=== PATIENT | female | born 1980 | race Caucasian/White ===

== ENCOUNTER → 2021-04-19 | Outpatient (CLI) | payer OTHER ==
--- NOTE | 2021-04-19 11:11 | REPMRS ---
Patient History The patient states she has not had a clinical breast exam in over a year. Digital Woman Screen Mammo: April 19, 2021 - Exam #: [id number] Bilateral CC and MLO view(s) were taken. Technologist: Marilyn Broderick, Technologist No prior studies available for comparison. FINDINGS: The breast tissue is extremely dense which could obscure a lesion on mammography. The Volpara volumetric breast density category is: D. There is a fairly symmentric extremely dense fibroglandular pattern in the breast parenchyma. There is no evidence of dominant mass, architectural distortion, or grouped microcalcification typical of malignancy. 3-D tomosynthesis shows no additional findings. Assessment: BI-RADS/ACR category 1 mammogram. Negative Mammogram. Recommendation Routine screening mammogram of both breasts in 1 year (for women over age 40). This patient's [facility] Lifetime Breast Cancer RIsk is estimated at 10.0 %. This mammogram was interpreted with the aid of an FDA-approved computer-aided dectection system. Electronically Signed By: Mike Mills MD 04/19/21 1111
== END ==
LOC: M WHC 10:21
PROVIDERS: ATTEND Obstetrics & Gynecology
DX: Z12.31 Encounter for screening mammogram for malignant neoplasm of breast (principal)

== ENCOUNTER → 2021-08-22 | Outpatient (REF) | payer OTHER ==
[2021-08-22 17:53] LABS: MAGNESIUM LEVEL 1.9 MG/DL (1.8-2.4)
[2021-08-22 17:58] LABS: TOTAL 25(OH) VITAMIN D 59.1 NG/ML (30.0-100.0)
== END ==
LOC: M SFHCRHEU 14:43
PROVIDERS: ATTEND Internal Medicine
DX: L65.9 Nonscarring hair loss, unspecified (principal); M79.7 Fibromyalgia; H04.129 Dry eye syndrome of unspecified lacrimal gland

== ENCOUNTER → 2021-09-10 | Outpatient (CLI) | payer OTHER | LOC: M RAD 17:14 | PROVIDERS: ATTEND Pain Medicine Interventional Pain Medicine | DX: M47.817 Spondylosis without myelopathy or radiculopathy, lumbosacral region (principal) ==

== ENCOUNTER 2021-10-28 06:23 | Day surgery (SDC) | payer OTHER ==
[2021-10-28] VITALS (7 sets, daily range): BP systolic 92–103; BP diastolic 54–64
[~2021-10-28] VITALS: Ht 152.4 cm; Wt 54.4 kg
[~2021-10-28 06:23] MED LIST: FISH306C PO; LEXA1TAB PO; LR 1,000 ML IV ONE; MAGN400C PO; TRAZ-252 PO; VITA-199 PO; VITA100T39 PO; ceFAZolin SOD 2 GM in IV 1 EA IV ONE
--- OUTSIDE RECORDS SUMMARY | 2021-10-28 06:29 | CCD ---
Author Author [email or web address] Organization [email or web address] Address Unknown Phone Unavailable Care Team Providers Care Hospital Admissions Clerk Name Role Phone Martínez, Arlet Unavailable PROBLEMS Type Condition ICD9-CM Code [id number] Code Onset Dates Condition S tatus W/U Status Risk SNOMED Code Notes Problem Chronic fatigue R53.82 Active confirmed 8422 9001 Problem Fibromyalgia M79.7 Active confirmed 7025925 05 Problem Dry eye H04.129 Active confirmed 830802752 ALLERGIES No Known Allergies ENCOUNTERS from 1980 to 2021-08-23 Encounter Location Date Provider Diagnosis [facility] [place] [phone] [place] [address] Jul, Arlet [place] IMMUNIZATIONS No Information SOCIAL HISTORY Tobacco Use: Social History Observation Description Date Details (start date - stop date) Never Smoker Sex Assigned At : Social History Observation Description Sex Assigned At Unknown Alcohol Screening: Question Answer Notes Did you have a drink containing alcohol in the past year? No Points 0 Interpretation Negative Tobacco Use: Question Answer Notes Are you a: never smoker REASON FOR REFERRAL No Information VITAL SIGNS No information MEDICATIONS Medication SIG (Take, Route, Frequency, Duration) Notes Start Da te End Date Status traZODone HCl 50 MG 1 tablet at bedtime as neede d Orally Once a day for 30 day(s) Active Vitamin B12 100 MCG as directed Orally Active Fish Oil 500 MG 1 capsule Orally Daily Active Lysine 500 MG as directed Orally Act connie Lexapro 20 MG 1 tablet Orally Once a day for 30 day(s) Active Refresh Dry Eye Therapy A ctive Vitamin D3 25 MCG (1000 UT) 1 capsule Orally Once a day for 30 day(s) Active Iron 325 (65 Fe) MG 1 tablet Orally Once a day for 30 day(s) Active Riboflavin 100 MG 1 tablet Orally Once a day for 30 day(s) Active Magnesium Oxide 400 MG 1 tablet as needed Orally Once a day for 30 da y(s) Active Tylenol 325 MG 2 tablet as needed Orally every 4 hrs as needed Active Ascorbic Acid 100 MG 1 tablet Orally Once a day for 30 day(s) Active PROCEDURES No Information RESULTS No Results REASON FOR VISIT Follow up appt need to be scheduled 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 Medical History Generalized Anxiety Disorder Medical History Back Pain Surgical History Alana Colon 2006 Hospitalization History ER visit for migraine 2016 Goals Section No Information Health Concerns No Information MEDICAL EQUIPMENT No Information MENTAL STATUS No Information FUNCTIONAL STATUS No Information ASSESSMENTS No Information PLAN OF TREATMENT Next Appt Details Provider Name:Yeimy Kandace Robbie, 2021-08-28 0 2:40:00 PM, [address] [place] [address] , [place], [address], Provider Name:Arlet Martínez, 2021-09-16 10:15:00 AM, [address] [place] [address], , [place], [address], Insurance Providers Payer Name Payer Address Payer Phone Insured Name Patient Relati onship to Insured Coverage Start Date Coverage End Date ACTIVE DUTY [address] [facility] [phone] CARLTON BACON self
--- OUTSIDE RECORDS SUMMARY | 2021-10-28 06:29 | CCD ---
Author Author [employer] Organization [employer] Address Unknown Phone Unavailable Care Team Providers Care Supervisor/Port Director Name Role Phone Martínez, Arlet Unavailable PROBLEMS Type Condition ICD9-CM Code CET12-LQ Code Onset Dates Condition S tatus W/U Status Risk SNOMED Code Notes Problem Chronic fatigue R53.82 Active confirmed 8422 9001 Problem Fibromyalgia M79.7 Active confirmed 5646432 05 Problem Dry eye H04.129 Active confirmed 632302142 ALLERGIES No Known Allergies ENCOUNTERS from 1980 to 2021-09-06 Encounter Location Date Provider Diagnosis [facility] Rheumatology [address] [place] [address] [place] [address] Aug, Arlet [place] IMMUNIZATIONS No Information SOCIAL HISTORY Tobacco Use: [...] Information RESULTS No Results REASON FOR VISIT Home Sleep Study 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 Medical History Generalized Anxiety Disorder Medical History Back Pain Surgical History Alana Colon 2005 Hospitalization History ER visit for migraine 2016 Goals Section No Information Health Concerns No Information MEDICAL EQUIPMENT No Information MENTAL STATUS No Information FUNCTIONAL STATUS No Information ASSESSMENTS No Information PLAN OF TREATMENT Next Appt Details Provider Name:Arlet Martínez, 2021-09-16 10:15:00 AM, [address] [place] [address], , [place], [address], Provider Name:Yeimy Kandace Robbie, 2021-09-17 0 9:30:00 AM, [address] [facility] [phone], [place], [address] Insurance Providers Payer Name Payer Address Payer Phone Insured Name Patient Relati onship to Insured Coverage Start Date Coverage End Date ACTIVE DUTY [address] [facility] [phone] CARLTON BACON self
--- OUTSIDE RECORDS SUMMARY | 2021-10-28 06:29 | CCD ---
Author Organization Unknown Address [address] [place] [address] Phone [phone] Care Team Providers Care Mechanic Driver Name Role Phone [facility] [phone] Allergies Code Code System Name Reaction Severity Status Onset NKDA Medications Name Status Start Date Stop Date B12 1 tab po daily Active Not available D3 DOTS 1 tab PO daily Active Not available Fish Oil 1 tab PO daily Active Not available iron 1 tab PO daily Active Not available Lexapro 20 mg tablet Take 1 tablet every day by oral route. Active Not available lysine 500 mg tablet Take 1 tablet every day by oral route. Active Not available magnesium 200 mg tablet Take 1 tablet every day by oral route. Active Not available riboflavin (vitamin B2) 1 tab Po daily Active Not available trazodone 50 mg tablet Take 1 tablet every day by oral route at bedtime. Active Not available Vitamin C 1 tab PO daily Active Not available Zanaflex 4 mg tablet Take 1 tablet 3 times a day by oral route as needed. Active Not available Problems None recorded. Procedures Date Name Performed by 08/20/2021 MRI, Lumbar Spine, W/o Contrast [facility] [address] [place] [address] (Work Place) Notes: Patient denies any surgeries. Results Lab Results None recorded. Past Encounters 09/11/2021 Lumbosacral Spondylosis without Myelopathy; Myofascial Pain Loreta Gomez SPECIAL TESTER: [address] [facility] [address], [place] [address], Ph. 08/20/2021 Lumbosacral Spondylosis without Myelopathy; Myofascial Pain Serafin Costello MD: [address] [facility] [address], [place] [address], Ph. Social History Tobacco Smoking Status Former Smoker Notes: quit at te een age Vaccine List None recorded. Plan of Care Reminders Provider Appointments None recorded. Lab None recorded. Referral None recorded. Procedures None recorded. Surgeries None recorded. Imaging None recorded. Vitals 09/11/2021 08:30AM FOLLOW-UP Height Blood Pressure 5 ft 114/76 mm[Hg] 08/20/2021 02:30PM NEW PATIENT Height Weight BMI Blood Pressure 5 ft 117.5 lbs 22.9 kg/m2 109/71 mm[Hg]
--- OUTSIDE RECORDS SUMMARY | 2021-10-28 06:29 | CCD ---
Author Author [facility] Organization [facility] Address Unknown Phone Unavailable Care Team Providers Care Armature Tester Name Role Phone Avalos, Yeimy Unavailable PROBLEMS Type Condition ICD9-CM Code [id number] Code Onset Dates Condition S tatus W/U Status Risk SNOMED Code Notes Problem Excessive vitamin B12 intake E67.8 Active confirme d 7273607221 Problem Abnormal uterine bleeding (AUB) N93.9 Active confirmed 53568558637446 Problem Chronic fatigue R53.82 Active confirmed 8422 9001 Problem Fibromyalgia M79.7 Active confirmed 4109839 05 Problem Dry eye H04.129 Active confirmed 553303195 ALLERGIES No Known Allergies ENCOUNTERS from 1980 to 2021-10-24 Encounter Location Date Provider Diagnosis [facility] [address] [place] [address] [place] [address] Sep, [facility] IMMUNIZATIONS No Information SOCIAL HISTORY Tobacco Use: [...] Notes Start Da te End Date Status Iron 325 (65 Fe) MG 1 tablet Orally Once a day for 30 day(s) Active Ibuprofen 800 MG 1 tablet with food or milk as needed Ora lly Three times a day Active Magnesium Oxide 400 MG 1 tablet as needed Orally Once a day for 30 da y(s) Active Tylenol 325 MG 2 tablet as needed Orally every 4 hrs as needed Active Riboflavin 100 MG 1 tablet Orally Once a day for 30 day(s) Active Percocet 5-325 MG 1 tablet as needed Orally every 6 hrs for 5 Sep, Active Fish Oil 500 MG 1 capsule Orally Daily Active Lysine 500 MG as directed Orally Act connie traZODone HCl 50 MG 1 tablet at bedtime as neede d Orally Once a day for 30 day(s) Active Vitamin B12 100 MCG as directed Orally Active Lexapro 20 MG 1 tablet Orally Once a day for 30 day(s) Active Vitamin D3 25 MCG (1000 UT) 1 capsule Orally Once a day for 30 day(s) Active Pyridium 200 MG 1 tablet after meals Orally Three times a day. 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 Day before surgery Ibuprofen 800 MG 1 tablet with food or milk as needed Ora lly Three times a day Next Appt Details Provider Name:Yeimy Avalos, 2021-10-28 0 7:30:00 AM, [address] [place] [address] , [place], [address], Provider Name:Yeimy Avalos 2021-11-06 0 1:20:00 PM, [address] [place] [address] , [place], [address], Provider Name:Yeimy Avalos, 2021-12-13 0 8:20:00 AM, [address] [place] [address]785-4155, [place], [address], Insurance Providers Payer Name Payer Address Payer Phone Insured Name Patient Relati onship to Insured Coverage Start Date Coverage End Date ACTIVE DUTY [address] [facility] [phone] CARLTON BACON self
--- OUTSIDE RECORDS SUMMARY | 2021-10-28 06:29 | CCD ---
Author Organization Unknown Address [address] [place] [address] Phone [phone] Care Team Providers Care Severity Of Illness Coordinator Name Role Phone [facility] [phone] Allergies Code Code System Name Reaction Severity Status Onset NKDA Medications Name Status Start Date Stop Date B12 1 tab every 3 days Active Not available D3 DOTS 1 tab PO daily Active Not available Fish Oil 1 tab PO daily Active Not available iron 1 tab PO every 3 days Active Not available Lexapro 20 mg tablet [...] by 08/20/2021 MRI, Lumbar Spine, W/o Contrast [facility] [address] [place] [address] (Work Place) Notes: Patient denies any surgeries. Results Lab Results None recorded. Past Encounters 09/25/2021 Lumbosacral Spondylosis without Myelopathy; Myofascial Pain; Lumbar Radiculopathy; Degeneration of Lumbar Intervertebral Disc; Degeneration of Lumbosacral Intervertebral Disc; Displacement of Lumbar Intervertebral Disc without Myelopathy; Intervertebral Disc Disorder; Spondylosis without Myelopathy Loreta Gomez SECURITY INFRASTRUCTURE ENGINEER: [address] [facility] [address], [address], [place] [address], Ph. 09/11/2021 Lumbosacral Spondylosis without Myelopathy; Myofascial Pain Loreta Gomez SECURITY INFRASTRUCTURE ENGINEER: [address], [place] [address], Ph. 08/20/2021 Lumbosacral Spondylosis without Myelopathy; Myofascial Pain Serafin Costello MD: [address] [facility] [address], [place] [address], Ph. Social History Tobacco Smoking Status Former Smoker Notes: quit at [facility] age Vaccine List None recorded. Plan of Care Reminders Provider Appointments None recorded. Lab None recorded. Referral None recorded. Procedures None recorded. Surgeries None recorded. Imaging None recorded. Vitals 09/25/2021 08:45AM FOLLOW-UP Height Blood Pressure 5 ft 110/76 mm[Hg] 09/11/2021 08:30AM FOLLOW-UP Height Blood Pressure 5 ft 114/76 mm[Hg] 08/20/2021 02:30PM NEW PATIENT Height Weight BMI Blood Pressure 5 ft 117.5 lbs 22.9 kg/m2 109/71 mm[Hg]
--- OUTSIDE RECORDS SUMMARY | 2021-10-28 06:29 | CCD ---
Author Author [employer] Organization [employer] Address Unknown Phone Unavailable Care Team Providers Care Residential Door Unit Installer Name Role Phone Martínez, Arlet Unavailable PROBLEMS Type Condition ICD9-CM Code HSI76-BT Code Onset Dates Condition S tatus W/U Status Risk SNOMED Code Notes Problem Chronic fatigue R53.82 Active confirmed 8422 9001 Problem Fibromyalgia M79.7 Active confirmed 5665358 05 Problem Dry eye H04.129 Active confirmed 923954775 ALLERGIES No Known Allergies ENCOUNTERS from 1980 to 2021-08-23 Encounter Location Date Provider Diagnosis [facility] Rheumatology 9 [facility] [phone] [place] [address] Jul, Arlet [place] IMMUNIZATIONS No Information SOCIAL HISTORY Tobacco Use: [...] Information RESULTS No Results REASON FOR VISIT Lab draw - CPK, iron, magnesium, phosphorus, vitamin D, vitamin B12, BEA titer & pattern, Anti-Sjogrens SSA SSB. 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 Medical History Generalized Anxiety Disorder Medical History Back Pain Surgical History Xiaojose de jesus Greybarbra 2006 Hospitalization History ER visit for migraine 2016 Goals Section No Information Health Concerns No Information MEDICAL EQUIPMENT No Information MENTAL STATUS No Information FUNCTIONAL STATUS No Information ASSESSMENTS No Information PLAN OF TREATMENT Next Appt Details Provider Name:Yeimy Kandace Robbie, 2021-08-28 0 2:40:00 PM, [address] [place] [address] , [place], [address], Provider Name:Arlet Martínez, 2021-09-16 10:15:00 AM, [address] [place] [address], , [place], [address], Insurance Providers Payer Name Payer Address Payer Phone Insured Name Patient Relati onship to Insured Coverage Start Date Coverage End Date ACTIVE DUTY [address] [facility] [phone] CARLTON BACON self
--- OUTSIDE RECORDS SUMMARY | 2021-10-28 06:29 | CCD ---
Author Organization Unknown Address [address] [place] [address] Phone [phone] Care Team Providers Care Halftone Operator Name Role Phone [facility] 3 [phone] Allergies Code Code System Name Reaction [...] by 08/20/2021 MRI, Lumbar Spine, W/o Contrast Informat ion not available Notes: Patient denies any surgeries. Results Lab Results None recorded. Past Encounters 08/20/2021 Lumbosacral Spondylosis without Myelopathy; Myofascial Pain Serafin Costello MD: [address] [facility] [address], [address], [place] [address], Ph. Social History Tobacco Smoking Status Former Smoker Notes: quit at een age Vaccine List None recorded. Plan of Care Reminders Provider Appointments None recorded. Lab None recorded. Referral None recorded. Procedures None recorded. Surgeries None recorded. Imaging None recorded. Vitals Height Weight BMI Blood Pressure 5 ft 117.5 lbs 22.9 kg/m2 109/71 mm[Hg]
--- OUTSIDE RECORDS SUMMARY | 2021-10-28 06:29 | CCD ---
Author Author [facility] Organization [facility] Address Unknown Phone Unavailable Care Team Providers Care Ring Packer Name Role Phone Yeimy Avalos Unavailable PROBLEMS Type Condition ICD9-CM Code VUQ70-NE Code Onset Dates Condition S tatus W/U Status Risk SNOMED Code Notes Problem Excessive vitamin B12 intake E67.8 Active confirme d 6278445431 Problem Abnormal uterine bleeding (AUB) N93.9 Active confirmed 62508644082297 Problem Chronic fatigue R53.82 Active confirmed 8422 9001 Problem Fibromyalgia M79.7 Active confirmed 0409056 05 Problem Dry eye H04.129 Active confirmed 537188543 ALLERGIES No Known Allergies ENCOUNTERS from 1980 to 2021-09-18 Encounter Location Date Provider Diagnosis [facility] Breast Care [address] [place] [address] [place] [address] Aug, Yeimy Robbie Abnormal uterine ble eding (AUB) N93.9 IMMUNIZATIONS No Information SOCIAL HISTORY Tobacco Use: [...] REASON FOR REFERRAL No Information VITAL SIGNS Weight 118 lbs Aug, Weight-kg 53.52 kg Aug, Height 60 in Aug, BMI 23.04 kg/m2 Aug, Blood pressure systolic 108 mm Hg Aug, Blood pressure diastolic 70 mm Hg Aug, MEDICATIONS Medication SIG (Take, Route, Frequency, Duration) Notes Start Da te End Date Status Magnesium Oxide 400 MG 1 tablet as needed Orally Once a day for 30 da y(s) Active Tylenol 325 MG 2 tablet as needed Orally every 4 hrs as needed Active Fish Oil 500 MG 1 capsule Orally Daily Active Iron 325 (65 Fe) MG 1 tablet Orally Once a day for 30 day(s) Active Riboflavin 100 MG 1 tablet Orally Once a day for 30 day(s) Active Lexapro 20 MG 1 tablet Orally Once a day for 30 day(s) Active Vitamin D3 25 MCG (1000 UT) 1 capsule Orally Once a day for 30 day(s) Active Ascorbic Acid 100 MG 1 tablet Orally Once a day for 30 day(s) Active Lysine 500 MG as directed Orally Act connie traZODone HCl 50 MG 1 tablet at bedtime as neede d Orally Once a day for 30 day(s) Active Refresh Dry Eye Therapy A ctive Vitamin B12 100 MCG as directed Orally Active PROCEDURES No Information RESULTS No Results REASON FOR VISIT DISC HYST 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 I discussed hysterectomy, uterine ablation and medical management. I specifically discussed supracervical versus complete hysterectomy. I reviewed the risk and benefit with all of the above. Patient will consider these options. She is sure she wants to proceed with hysterectomy but unsure whether or not she would like a supracervical hysterectomy. PLAN OF TREATMENT Treatment Notes Assessment Notes Clinical Notes Abnormal uterine bleeding (AUB) Discusse d management options for menorrhagia. I discussed hysterectomy, uterine ablation and medical management. I specifically discussed supracervical versus complete hysterectomy. I reviewed the risk and benefit with all of the above. Patient will consider these options. She is sure she wants to proceed with hysterectomy but unsure whether or not she would like a supracervical hysterectomy. Next Appt Details prn Reason: Insurance Providers Payer Name Payer Address Payer Phone Insured Name Patient Relati onship to Insured Coverage Start Date Coverage End Date [facility] ACTIVE DUTY [address] [facility] [id number] CARLTON BACON
--- OUTSIDE RECORDS SUMMARY | 2021-10-28 06:29 | CCD ---
Author Organization Unknown Address [address] [place] [address] Phone [phone] Care Team Providers Care Manager Gas Name Role Phone [facility] [phone] Allergies Code Code System Name Reaction [...] by 08/20/2021 MRI, Lumbar Spine, W/o Contrast [facility] [address] [place] [address] (Work Place) Notes: Patient denies any surgeries. Results Lab Results None recorded. Past Encounters 10/11/2021 Lumbosacral Spondylosis without Myelopathy; Myofascial Pain; Lumbar Radiculopathy; Degeneration of Lumbar Intervertebral Disc; Degeneration of Lumbosacral Intervertebral Disc; Displacement of Lumbar Intervertebral Disc without Myelopathy; Intervertebral Disc Disorder; Spondylosis without Myelopathy Loreta Gomez HEAD BAKER: [address], [place] [address], Ph. 09/25/2021 Lumbosacral Spondylosis without Myelopathy; Myofascial Pain; Lumbar Radiculopathy; Degeneration of Lumbar Intervertebral Disc; Degeneration of Lumbosacral Intervertebral Disc; Displacement of Lumbar Intervertebral Disc without Myelopathy; Intervertebral Disc Disorder; Spondylosis without Myelopathy Loreta Bardales Patricia, HEAD BAKER: [address] [address], [place] [address], Ph. 09/11/2021 Lumbosacral Spondylosis without Myelopathy; Myofascial Pain Loreta Gomez HEAD BAKER: [address] [address], [facility] [place] [address], Ph. 08/20/2021 Lumbosacral Spondylosis without Myelopathy; Myofascial Pain Serafin Costello MD: [address] [address], [place] [address], Ph. Social History Tobacco Smoking Status Former Smoker Notes: quit at [facility] age Vaccine List None recorded. Plan of Care Reminders Provider Appointments None recorded. Lab None recorded. Referral None recorded. Procedures None recorded. Surgeries None recorded. Imaging None recorded. Vitals 10/11/2021 11:00AM FOLLOW-UP Height Blood Pressure 5 ft 125/81 mm[Hg] 09/25/2021 08:45AM FOLLOW-UP Height Blood Pressure 5 ft 110/76 mm[Hg] 09/11/2021 08:30AM FOLLOW-UP Height Blood Pressure 5 ft 114/76 mm[Hg] 08/20/2021 02:30PM NEW PATIENT Height Weight BMI Blood Pressure 5 ft 117.5 lbs 22.9 kg/m2 109/71 mm[Hg]
--- OUTSIDE RECORDS SUMMARY | 2021-10-28 06:29 | CCD ---
Author Author [facility] Organization [facility] Address Unknown Phone Unavailable Care Team Providers Care Greaser Operator Name Role Phone Avalos, Yeimy Unavailable PROBLEMS Type Condition ICD9-CM Code [id number] Code Onset Dates Condition S tatus W/U Status Risk SNOMED Code Notes Problem Excessive vitamin B12 intake E67.8 Active confirme d 5650015624 Problem Abnormal uterine bleeding (AUB) N93.9 Active confirmed 65647943729495 Problem Chronic fatigue R53.82 Active confirmed 8422 9001 Problem Fibromyalgia M79.7 Active confirmed 4452494 05 Problem Dry eye H04.129 Active confirmed 661919345 ALLERGIES No Known Allergies ENCOUNTERS from 1980 to 2021-09-25 Encounter Location Date Provider Diagnosis [facility] [address] [place] [address] [place] [address] Sep, [facility] IMMUNIZATIONS No Information SOCIAL HISTORY Tobacco Use: [...] Information RESULTS No Results REASON FOR VISIT 10/28/21 SURG AUTH MEDICAL (GENERAL) HISTORY Type Description Date Medical [...] OF TREATMENT Next Appt Details Provider Name:Yeimy Leon, 2021-10-01 0 8:00:00 AM, [address] [place] [address], [place], [place], [address] [place] [address], Provider Name:Yeimy Leoruiz 2021-10-28 0 7:30:00 AM, [address] [place] [address], [place], [place], [address] [place] [address], Provider Name:Yeimy Leon, 2021-11-06 0 1:20:00 PM, [address] [place] [address], [place], [address], Provider Name:Yeimy Jeronimo Robbie, 2021-12-12 0 8:20:00 AM, [address] [place] [address], [place], [address], Insurance Providers Payer Name Payer Address Payer Phone Insured Name Patient Relati onship to Insured Coverage Start Date Coverage End Date ACTIVE DUTY [address] [facility] [phone] CARLTON BACON self
--- OUTSIDE RECORDS SUMMARY | 2021-10-28 06:29 | CCD ---
Author Author [facility] Organization [facility] Address Unknown Phone Unavailable Care Team Providers Care Full Stack Software Engineer Name Role Phone Mauricio, Arlet Unavailable PROBLEMS Type Condition ICD9-CM Code [id number] Code Onset Dates Condition S tatus W/U Status Risk SNOMED Code Notes Problem Chronic fatigue R53.82 Active confirmed 8422 9001 Problem Fibromyalgia M79.7 Active confirmed 1256624 05 Problem Dry eye H04.129 Active confirmed 586708020 ALLERGIES No Known Allergies ENCOUNTERS from 1980 to 2021-09-03 Encounter Location Date Provider Diagnosis [facility] Rheumatology [address] [place] [address] [place] [address] Jul, Arlet Martínez Fibromyalgia M79.7 ; Alopeci a L65.9 ; Chronic fatigue R53.82 and Dry eye H04.129 IMMUNIZATIONS No Information SOCIAL HISTORY Tobacco Use: [...] FOR REFERRAL No Information VITAL SIGNS Weight 117.2 lbs Jul, Weight-kg 53.16 kg Jul, Height 60 in Jul, BMI 22.89 kg/m2 Jul, Heart Rate 73 /min Jul, Respiratory Rate 18 /min Jul, Temperature 99.3 degrees Fahrenheit Jul, Oximetry 97 Jul, Blood pressure systolic 108 mm Hg Jul, Blood pressure diastolic 68 mm Hg Jul, MEDICATIONS Medication SIG (Take, Route, Frequency, Duration) [...] 30 day(s) Active PROCEDURES No Information RESULTS Component Value Reference Range CPK CREATINE PHOSPHOKINASE Reviewed date:08/23/2021 06:55:50 Interpretation: Performing Lab:[facility] [address] [place] [address] , ,[place] [address] CPK CREATINE PHOSPHOKINASE 106 26-192 IRON (FE) Reviewed date:08/23/2021 06:55:50 Interpretation: Performing Lab:[facility] [address] [facility] [address] , ,[place] [address] IRON (FE) 142 50-170 MAGNESIUM LEVEL Reviewed date:08/23/2021 06:55:50 Interpretation: Performing Lab:[facility] [address] [facility] [address] , ,[place] [address] MAGNESIUM LEVEL 1.9 1.8-2.4 PHOSPHOROUS LEVEL Reviewed date:08/23/2021 06:55:50 Interpretation: Performing Lab:[facility] [address] [place] [address] , ,[place] [address] PHOSPHORUS LEVEL 4.0 2.5-4.9 VITAMIN D 25-HYDROXY Reviewed date:08/23/2021 06:55:50 Interpretation: Performing Lab:[facility], [facility] [address] [facility] [address] , ,[place] [address] TOTAL 25(OH) VITAMIN D 59.1 30.0-100.0 VITAMIN B12 LEVEL Reviewed date:08/23/2021 06:55:50 Interpretation: Performing Lab:[facility], [facility] [address] [facility] [address] , ,[facility] VITAMIN B12 LEVEL 92 247-911 ANTI-SJOGRENS A&B ANTIBODIES Reviewed date:08/26/2021 19:31:58 Interpretation: Performing Lab:[facility], [facility] [address] [place] [address] , ,[place] [address] SSA SJOGRENS A <0.2 0.0-0.9 SSB SJOGRENS B <0.2 0.0-0.9 BEA TITER & PATTERN Reviewed date:08/26/2021 19:31:58 Interpretation: Performing Lab:[facility], [facility] [address] [place] [address] , ,[place] [address] BEA (HEP2) Negative . REASON FOR VISIT Zaira presents today to establish as a new patient. She feels like she has emerald n in all of her joints. Somes times she will feel a sensation of tightness and swelling in the hands and feet. Also states her hands and feet are hot to the t ouch. Feels like her top front teeth hurt at times but not all the time. Skin hurts. She did have full body laser hair removal because the hair follicles stone t. Feeling of clothing on her skin is uncomfortable. Cotton is her best option for clothing. Also complains of chronic fatigue with some days worse than othe rs. Has memory problems. MEDICAL (GENERAL) HISTORY Type Description Date Medical [...] Notes Treatment Notes Treatm ent Clinical Notes Jul, Fibromyalgia (ICD-10 - M79.7) Given the widespread pain and somatic symptoms, the clinical presentation is consisent with fibromyalgia. Given the overall worsening symptomatology, will investigate factors that can exacerbate the symptomatology. Will check vitamin D level, given the significant muscle aches. - Will check creatinine kinase to evaluate for elevated muscle enzymes, given the significant muscle pain. - Nutritional deficiencies can contribute to increased joint pain and muscle aches. Will check magnesium, and phosphorous Jul, Alopecia (ICD-10 - L65.9) Given the alopecia, will proceed with perform an BEA to screen for an underlying connective tissue disease. If the BEA is positive, then will proceed with further evaluation. Jul, Chronic fatigue (ICD-10 - R53.82) Given the chronic fatigue and sleep symptomatology, will proceed with a home sleep study to r/o an underlying sleep disorder. Jul, Dry eye (ICD-10 - H04.129) Given the dry eyes, will check SSA and SSB antibodies to further investigate for Sjogren's Syndrome. PLAN OF TREATMENT Treatment Notes Assessment Notes Clinical Notes Fibromyalgia Given the widespread pain and somatic symptoms, the clinical presentation is consisent with fibromyalgia. Given the overall worsening symptomatology, will investigate factors that can exacerbate the symptomatology. Will check vitamin D level, given the significant muscle aches.- Will check creatinine kinase to evaluate for elevated muscle enzymes, given the significant muscle pain.- Nutritional deficiencies can contribute to increased joint pain and muscle aches. Will check magnesium, and phosphorous Alopecia Given the alopecia, will proceed with perform an BEA to screen for an underlying connective tissue disease. If the BEA is positive, then will proceed with further evaluation. Chronic fatigue Given the chronic fa tigue and sleep symptomatology, will proceed with a home sleep study to r/o an underlying sleep disorder. Dry eye Given the dry eyes, will check SSA and SSB antibodies to further investigate for Sjogren's Syndrome. Treatment Notes Test Name Order Date Home Sleep Test NON-E 2021-08-20 Next Appt Details Provider Name:Arlet Raghu Martínez, 2021-09-16 10:15:00 AM, [address] [place] [address], [place], [address], Provider Name:Yeimy Avalos, 2021-09-17 0 9:30:00 AM, [address] [facility], , [place], [address], Insurance Providers Payer Name Payer Address Payer Phone Insured Name Patient Relati onship to Insured Coverage Start Date Coverage End Date ACTIVE DUTY [address] [facility] [phone] ZAIRA BACON
--- OUTSIDE RECORDS SUMMARY | 2021-10-28 06:29 | CCD ---
Author Author [facility] Organization [facility] Address Unknown Phone Unavailable Care Team Providers Care Welder Tack Name Role Phone Yeimy Avalos Unavailable PROBLEMS Type Condition ICD9-CM Code ZTM66-GN Code Onset Dates Condition S tatus W/U Status Risk SNOMED Code Notes Problem Excessive vitamin B12 intake E67.8 Active confirme d 8384537392 Problem Abnormal uterine bleeding (AUB) N93.9 Active confirmed 25122677873084 Problem Chronic fatigue R53.82 Active confirmed 8422 9001 Problem Fibromyalgia M79.7 Active confirmed 6195962 05 Problem Dry eye H04.129 Active confirmed 520354870 ALLERGIES No Known Allergies ENCOUNTERS from 1980 to 2021-10-04 Encounter Location Date Provider Diagnosis [facility] [address] [place] [address] [place] [address] Sep, Yeimy Robbie Abnormal uterine ble eding (AUB) [...] FOR REFERRAL No Information VITAL SIGNS Weight 116.2 lbs Sep, Height 60 in Sep, BMI 22.69 kg/m2 Sep, Blood pressure systolic 110 mm Hg Sep, Blood pressure diastolic 66 mm Hg Sep, MEDICATIONS Medication SIG (Take, Route, Frequency, Duration) [...] Information RESULTS No Results REASON FOR VISIT PRE OP SURG 10/28/21 MEDICAL (GENERAL) HISTORY Type Description Date Medical [...] Notes Treatment Notes Treatm ent Clinical Notes Sep, Abnormal uterine bleeding (AUB) (ICD-10 - N93.9) Pre-Operative CounselingProcedure: Robotic assisted hysterectomy with bilateral salpingectomy and cystoscopySurgeon: Jesse Larsonistant: Pablo Paz NP Patient has been counseling regarding the risks of the procedure to include anesthesia risks to include , bleeding/need for blood transfusion, infection, damage to internal organs, postoperative pain and need for future surgery based on findings. She understands these risks and wishes to proceed with the above procedures. PLAN OF TREATMENT Medication Medication Name Sig Start Date Stop Date Percocet 5-325 MG 1 tablet as needed Orally every 6 hrs for 5 Sep, Pyridium 200 MG 1 tablet after meals Orally Three times a day. Day before surgery Ibuprofen 800 MG 1 tablet with food or milk as needed Ora lly Three times a day Treatment Notes Assessment Notes Clinical Notes Abnormal uterine bleeding (AUB) Pre-Oper ative CounselingProcedure: Robotic assisted hysterectomy with bilateral salpingectomy and cystoscopySurgeon: Yeimy Avalos MDAssistant: Pablo Paz OIL AND GAS SPECIALIST Patient has been counseling regarding the risks of the procedure to include anesthesia risks to include , bleeding/need for blood transfusion, infection, damage to internal organs, postoperative pain and need for future surgery based on findings. She understands these risks and wishes to proceed with the above procedures. Next Appt Details Provider Name:Yeimy Avalos, 2021-10-28 0 7:30:00 AM, [address] [place] [address], , [place], [address], Provider Name:Yeimy Avalos, 2021-11-06 0 1:20:00 PM, [address] [place] [address], , [place], [address], Provider Name:Yeimy Avalos, 2021-12-13 0 8:20:00 AM, [address] [place] [address], , [place], [address], Insurance Providers Payer Name Payer Address Payer Phone Insured Name Patient Relati onship to Insured Coverage Start Date Coverage End Date ACTIVE DUTY [address] [facility] [phone] CARLTON BACON
--- OUTSIDE RECORDS SUMMARY | 2021-10-28 06:29 | CCD ---
Author Author [facility] Organization [facility] Address Unknown Phone Unavailable Care Team Providers Care Designer Architect Name Role Phone Mauricio, Arlet Unavailable PROBLEMS Type Condition ICD9-CM Code [id number] Code Onset Dates Condition S tatus W/U Status Risk SNOMED Code Notes Problem Fibromyalgia M79.7 Active confirmed 8710111 05 Problem Excessive vitamin B12 intake E67.8 Active confirme d 2619212450 Problem Dry eye H04.129 Active confirmed 942179371 Problem Chronic fatigue R53.82 Active confirmed 8422 9001 ALLERGIES No Known Allergies ENCOUNTERS from 1980 to 2021-09-17 Encounter Location Date Provider Diagnosis [facility] Rheumatology [address] [place] [address] [place] [address] Aug, [facility] IMMUNIZATIONS No Information SOCIAL HISTORY Tobacco Use: [...] Notes Start Da te End Date Status Tylenol 325 MG 2 tablet as needed Orally every 4 hrs as needed Active Riboflavin 100 MG 1 tablet Orally Once a day for 30 day(s) Active Vitamin D3 25 MCG (1000 UT) 1 capsule Orally Once a day for 30 day(s) Active Fish Oil 500 MG 1 capsule Orally Daily Active Magnesium Oxide 400 MG 1 tablet as needed Orally Once a day for 30 da y(s) Active Ascorbic Acid 100 MG 1 tablet Orally Once a day for 30 day(s) Active Vitamin B12 100 MCG as directed Orally Active Refresh Dry Eye Therapy A ctive Lysine 500 MG as directed Orally Act connie Iron 325 (65 Fe) MG 1 tablet Orally Once a day for 30 day(s) Active Lexapro 20 MG 1 tablet Orally Once a day for 30 day(s) Active traZODone HCl 50 MG 1 tablet at [...] OF TREATMENT Next Appt Details Provider Name:Yeimy Avalos, 2021-09-17 0 9:30:00 AM, [address] [facility], , [place], [address], Insurance Providers Payer Name Payer Address Payer Phone Insured Name Patient Relati onship to Insured Coverage Start Date Coverage End Date ACTIVE DUTY [address] [facility] [phone] CARLTON BACON self
--- OUTSIDE RECORDS SUMMARY | 2021-10-28 06:30 | CCD ---
Author Author [facility] Organization [facility] Address Unknown Phone Unavailable Care Team Providers Care Fireworks Assembly Supervisor Name Role Phone Parminder Costello MD Unavailable Unavailable Parminder Costello MD Unavailable Unavailable Parminder Costello MD Unavailable Unavailable Parminder Costello MD Unavailable Unavailable Parminder Costello MD Unavailable Unavailable Parminder Costello MD Unavailable Unavailable Parminder Cosetllo MD Unavailable Unavailable Parminder Costello MD Unavailable Unavailable Parminder Costello MD Unavailable Unavailable Parminder Costello MD Unavailable Unavailable Parminder Costello MD Unavailable Unavailable Parminder Costello MD Unavailable Unavailable Parminder Costello MD Unavailable Unavailable Parminder Costello MD Unavailable Unavailable Parminder Costello MD Unavailable Unavailable Parminder Costello MD Unavailable Unavailable Parminder Costello MD Unavailable Unavailable Parminder Costello MD Unavailable Unavailable Parminder Costello MD Unavailable Unavailable Parminder Costello MD Unavailable Unavailable Parminder Costello MD Unavailable Unavailable Parminder Costello MD Unavailable Unavailable Parminder Costello MD Unavailable Unavailable Parminder Costello MD Unavailable Unavailable Parminder Costello MD Unavailable Unavailable Parminder Costello MD Unavailable Unavailable Parminder Costello MD Unavailable Unavailable Parminder Costello MD Unavailable Unavailable Parminder Costello MD Unavailable Unavailable Parminder Costello MD Unavailable Unavailable Parminder Costello MD Unavailable Unavailable Parminder Costello MD Unavailable Unavailable Parminder Costello MD Unavailable Unavailable Parminder Costello MD Unavailable Unavailable BolParminder shaikh MD Unavailable Unavailable BolParminder shaikh MD Unavailable Unavailable BolParminder shaikh MD Unavailable Unavailable BolParminder shaikh MD Unavailable Unavailable BolParminder shaikh MD Unavailable Unavailable BolParminder shaikh MD Unavailable Unavailable BolParminder shaikh MD Unavailable Unavailable BolParminder shaikh MD Unavailable Unavailable BolParminder shaikh MD Unavailable Unavailable BolParminder shaikh MD Unavailable Unavailable BolParminder shaikh MD Unavailable Unavailable BolParminder shaikh MD Unavailable Unavailable BolParminder shaikh MD Unavailable Unavailable BolParminder shaikh MD Unavailable Unavailable BolParminder shaikh MD Unavailable Unavailable Jumalon, M Loreta INTERSTATE PLANNER Unavailable Unavailable Jumalon, M Loreta INTERSTATE PLANNER Unavailable Unavailable Jumalon, M Loreta INTERSTATE PLANNER Unavailable Unavailable Jumalon, M Loreta INTERSTATE PLANNER Unavailable Unavailable Jumalon, M Loreta INTERSTATE PLANNER Unavailable Unavailable Jumalon, M Loreta INTERSTATE PLANNER Unavailable Unavailable Jumalon, M Loreta INTERSTATE PLANNER Unavailable Unavailable Jumalon, M Loreta INTERSTATE PLANNER Unavailable Unavailable Jumalon, M Loreta INTERSTATE PLANNER Unavailable Unavailable Jumalon, M Loreta INTERSTATE PLANNER Unavailable Unavailable Jumalon, M Loreta INTERSTATE PLANNER Unavailable Unavailable Jumalon, M Loreta INTERSTATE PLANNER Unavailable Unavailable Jumalon, M Loreta INTERSTATE PLANNER Unavailable Unavailable Jumalon, M Loreta INTERSTATE PLANNER Unavailable Unavailable Jumalon, M Loreta INTERSTATE PLANNER Unavailable Unavailable Jumalon, M Loreta INTERSTATE PLANNER Unavailable Unavailable Jumalon, M Loreta INTERSTATE PLANNER Unavailable Unavailable Jumalon, M Loreta INTERSTATE PLANNER Unavailable Unavailable Jumalon, M Loreta INTERSTATE PLANNER Unavailable Unavailable Jumalon, M Loreta INTERSTATE PLANNER Unavailable Unavailable Jumalon, M Loreta INTERSTATE PLANNER Unavailable Unavailable Jumalon, M Loreta INTERSTATE PLANNER Unavailable Unavailable Jumalon, M Loreta INTERSTATE PLANNER Unavailable Unavailable Jumalon, M Loreta INTERSTATE PLANNER Unavailable Unavailable Jumalon, M Loreta INTERSTATE PLANNER Unavailable Unavailable Jumalon, M Loreta INTERSTATE PLANNER Unavailable Unavailable Jumalon, M Loreta INTERSTATE PLANNER Unavailable Unavailable Jumalon, M Loreta INTERSTATE PLANNER Unavailable Unavailable Jumalon, M Loreta INTERSTATE PLANNER Unavailable Unavailable Jumalon, M Loreta INTERSTATE PLANNER Unavailable Unavailable Re-disclosure Warning The records that you are about to access may contain information from federally-assisted alcohol or drug abuse programs. If such information is present, then the following federally mandated warning applies: This information has been disclosed to you from records protected by federal confidentiality rules (42 CFR part 2). The federal rules prohibit you from making any further disclosure of this information unless further disclosure is expressly permitted by the written consent of the person to whom it pertains or as otherwise permitted by 42 CFR part 2. A general authorization for the release of medical or other information is NOT sufficient for this purpose. The Federal rules restrict any use of the information to criminally investigate or prosecute any alcohol or drug abuse patient.The records that you are about to access may contain highly sensitive health information, the redisclosure of which is protected by Article 27-F of the [facility] Public Health law. If you continue you may have access to information: Regarding HIV / AIDS; Provided by facilities licensed or operated by the [facility] Office of Mental Health; or Provided by the [facility] Office for People With Developmental Disabilities. If such information is present, then the following [facility] mandated warning applies: This information has been disclosed to you from confidential records which are protected by state law. State law prohibits you from making any further disclosure of this information without the specific written consent of the person to whom it pertains, or as otherwise permitted by law. Any unauthorized further disclosure in violation of state law may result in a fine or long term sentence or both. A general authorization for the release of medical or other information is NOT sufficient authorization for further disc losure. Encounters Encounter Providers Location Date Indications Data Source(s ) Unknown [address] [facility], [facility] [address] 10/14/2021 12:00:00 AM EST eCW1 ([facility]) Loreta Jeffy Albertojosue, LEAD IOS DEVELOPER: [address], [place] [address], Ph. Attender: Loreta Gomez RADHA [place] - [facility] - Main Office 10/11/2021 12:00:00 AM EST ATHE NA ([facility]) Outpatient [address] [facility] [address] 10/01/2021 12:00:00 AM EST eCW1 ([facility]) Loreta Jeffy Gomez, LEAD IOS DEVELOPER: [address], [place] [address], Ph. Attender: Loreta Gomez [facility] - [facility] - [facility] 09/25/2021 12:00:00 AM EDT ATHE NA ([facility]) Unknown [address] [facility] [address] 09/25/2021 12:00:00 AM EDT eCW1 ([facility]) Loreta Jeffy Gomez, LEAD IOS DEVELOPER: [address], [place] [address], Ph. Attender: Loreta Gomez [facility] - [facility] - [facility] 09/25/2021 12:00:00 AM EDT ATHE NA ([facility]) Outpatient [address] [facility] [address] 09/17/2021 12:00:00 AM EDT eCW1 ([facility]) Outpatient [address] [facility] [address] 09/16/2021 12:00:00 AM EDT eCW1 ([facility]) Unknown [address] [facility] [address] 09/13/2021 12:00:00 AM EDT eCW1 ([facility]) Loreta Jeffy Gomez, LEAD IOS DEVELOPER: [address], [place] [address], Ph. Attender: Loreta Gomez [facility] - [facility] - [facility] 09/11/2021 12:00:00 AM EDT ATHE NA ([facility]) Loreta Gomez, LEAD IOS DEVELOPER: [address], [address], [place] [address], Ph. Attender: Loreta Gomez [facility] - [facility] 09/11/2021 12:00:00 AM EDT ATHE ULISES ([facility]) Loreta Gomez, LEAD IOS DEVELOPER: [address], [place] [address], Ph. Attender: Loreta Gomez [facility] - [facility] 09/11/2021 12:00:00 AM EDT ATHE NA ([facility]) Unknown [address] [facility] [address] 09/03/2021 12:00:00 AM EDT eCW1 ([facility]) Outpatient [address] [facility] [id number] 08/22/2021 12:00:00 AM EDT eCW1 ([facility]) Unknown [address] [facility] [address] 08/22/2021 12:00:00 AM EDT eCW1 ([facility]) Serafin Costello MD: [address], [place] [address], Ph. Attender: Serafin Costello MD [place] - [facility] 08/20/2021 12:00:00 AM EDT CHETAN ([facility]) Serafin Costello MD: [address], [place] [address], Ph. Attender: Serafin Costello MD [place] - [facility] 08/20/2021 12:00:00 AM EDT CHETAN ([facility]) Serafin Costello MD: [address], [place] [address], Ph. Attender: Serafin Costello MD [place] - [facility] - Main Office 08/20/2021 12:00:00 AM EDT CHETAN ([facility]) Outpatient [address] [facility] [address] 08/20/2021 12:00:00 AM EDT eCW1 ([facility]) Serafin Costello MD: [address] [address], [place] [address], Ph. Attender: Serafin Costello MD [place] - [facility] - Main Office 08/20/2021 12:00:00 AM EDT CHETAN ([facility]) Medications Medication Brand Name Start Date Product Form Dose Route Admi nistrative Instructions Pharmacy Instructions Status Indications Reaction Description Data Source(s) Acetaminophen 325 MG / Oxycodone Hydroch loride 5 MG Oral Tablet [Percocet] Percocet 5-325 MG Percocet 5-325 MG 10/01/2021 12:00:00 AM EST 1 .0 {tablet_as_needed} active Percocet 5-32 5 MG eCW1 ([facility]) Acetaminophen 325 MG / Oxycodone Hydroch loride 5 MG Oral Tablet [Percocet] Percocet 5-325 MG Percocet 5-325 MG 10/01/2021 12:00:00 AM EST 1 .0 {tablet_as_needed} active Percocet 5-32 5 MG eCW1 ([facility]) Insurance Providers Payer name Policy type / Coverage type Policy ID Covered republican ID Covered republican's relationship to lópez Policy López Plan Information [facility] ACTIVE DUTY [id number] SP [id number] DO NOT USE [id number] SP [id number] [facility] ACTIVE DUTY [id number] SP [id number] Problems, Conditions, and Diagnoses Code Display Name Description Problem Type Effective Dates Data Source(s) N93.9 Abnormal uterine bleeding Abnormal uterine bleeding (A UB) Problem 09/17/2021 12:00:00 AM EDT eCW1 ([facility]) E67.8 [id number] Excessive vitamin B12 intake Problem 09/16/2021 12:00:00 AM EDT eCW1 ([facility]) H04.129 [id number] Dry eye Problem 08/20/2021 12:00:00 AM ED T eCW1 ([facility]) M79.7 [id number] Fibromyalgia Problem 08/20/2021 12:00:00 AM EDT eCW1 ([facility]) R53.82 [id number] Chronic fatigue Problem 08/20/2021 12:00:00 AM EDT eCW1 ([facility]) Surgeries/Procedures Procedure Description Date Indications Data Source(s) MRI, lumbar spine, w/o contrast 08/20/2021 12:00:00 AM EDT CHETAN ([facility]) Results ID Date Data Source BEA TITER & PATTERN 08/22/2021 12:00:00 AM EDT eCW1 ([facility]) Name Value Range Interpretation Code Description Data Marisel rce(s) Supporting Document(s) Negative . BEA (HEP2) eCW1 ([facility]) ID Date Data Source ANTI-SJOGRENS A&B ANTIBODIES 08/22/2021 12:00:00 AM EDT eCW1 ([facility]) Name Value Range Interpretation Code Description Data Marisel rce(s) Supporting Document(s) <0.2 0.0-0.9 SSB SJOGRENS B eCW1 ([facility]) <0.2 0.0-0.9 SSA SJOGRENS A eCW1 ([facility]) ID Date Data Source VITAMIN B12 LEVEL 08/22/2021 12:00:00 AM EDT eCW1 ([facility]) Name Value Range Interpretation Code Description Data Marisel rce(s) Supporting Document(s) [id number] VITAMIN B12 LEVEL eCW1 ([facility]) ID Date Data Source VITAMIN D 25-HYDROXY 08/22/2021 12:00:00 AM EDT eCW1 ([facility]) Name Value Range Interpretation Code Description Data Marisel rce(s) Supporting Document(s) 59.1 30.0-100.0 TOTAL 25(OH) VITAMIN D eC W1 ([facility]) ID Date Data Source PHOSPHOROUS LEVEL 08/22/2021 12:00:00 AM EDT eCW1 ([facility]) Name Value Range Interpretation Code Description Data Marisel rce(s) Supporting Document(s) 4.0 2.5-4.9 PHOSPHORUS LEVEL eCW1 ([facility]) ID Date Data Source MAGNESIUM LEVEL 08/22/2021 12:00:00 AM EDT eCW1 ([facility] hospital) Name Value Range Interpretation Code Description Data Marisel rce(s) Supporting Document(s) 1.9 1.8-2.4 MAGNESIUM LEVEL eCW1 ([facility]) ID Date Data Source IRON (FE) 08/22/2021 12:00:00 AM EDT eCW1 ([facility]) Name Value Range Interpretation Code Description Data Marisel rce(s) Supporting Document(s) 142 [id number] IRON (FE) eCW1 ([facility]) ID Date Data Source CPK CREATINE PHOSPHOKINASE 08/22/2021 12:00:00 AM EDT eCW1 ( [facility]) Name Value Range Interpretation Code Description Data Marisel rce(s) Supporting Document(s) 106 26-192 CPK CREATINE PHOSPHOKINASE eCW 1 ([facility]) Procedure Social History Code Duration Value Status Description Data Source(s ) Smoking 09/30/2021 12:00:00 AM EST Never Smoker completed Never S moker eCW1 ([facility]) Smoking 09/30/2021 12:00:00 AM EST Never Smoker completed Never S moker eCW1 ([facility]) Smoking 09/17/2021 12:00:00 AM EDT Never Smoker completed Never S moker eCW1 ([facility]) Smoking 09/17/2021 12:00:00 AM EDT Never Smoker completed Never S moker eCW1 ([facility]) Smoking 09/17/2021 12:00:00 AM EDT Never Smoker completed Never S moker eCW1 ([facility]) Smoking 09/16/2021 12:00:00 AM EDT Never Smoker completed Never S moker eCW1 ([facility]) Smoking 08/20/2021 12:00:00 AM EDT Never Smoker completed Never S moker eCW1 ([facility]) Smoking 08/20/2021 12:00:00 AM EDT Never Smoker completed Never S moker eCW1 ([facility]) Smoking 08/20/2021 12:00:00 AM EDT Never Smoker completed Never S moker eCW1 ([facility]) Smoking 08/20/2021 12:00:00 AM EDT Never Smoker completed Never S moker eCW1 ([facility]) Vital Signs ID Date Data Source UNK Name Value Range Interpretation Code Description Data Source(s) Diastolic blood pressure 81 mm[Hg] 81 mm[Hg] CHETAN ([facility]) Body height 60 [in_i] 60 [in_i] CHETAN ([facility]) Systolic blood pressure 125 mm[Hg] 125 mm[Hg] A THENA ([facility]) Body weight 116.2 [lb_av] 116.2 [lb_av] eCW1 ([facility]) Body height 60 [in_i] 60 [in_i] W1 (Critical access hospital) Body mass index (BMI) [Ratio] 22.69 kg/m2 22.69 kg/m2 [facility] ([facility]) Systolic blood pressure 110 mm[Hg] 110 mm[Hg] e CW1 ([facility]) Diastolic blood pressure 66 mm[Hg] 66 mm[Hg] eCW1 ([facility]) Diastolic blood pressure 76 mm[Hg] 76 mm[Hg] CHETAN ([facility]) Body height 60 [in_i] 60 [in_i] CHETAN ([facility]) Systolic blood pressure 110 mm[Hg] 110 mm[Hg] A THENA ([facility]) Diastolic blood pressure 76 mm[Hg] 76 mm[Hg] CHETAN ([facility]) Body height 60 [in_i] 60 [in_i] CHETAN ([facility]) Systolic blood pressure 110 mm[Hg] 110 mm[Hg] A THENA ([facility]) Body weight 118 [lb_av] 118 [lb_av] eCW1 ([facility]) Body weight 53.52 kg 53.52 kg eCW1 ([facility]) Body height 60 [in_i] 60 [in_i] eCW1 ([facility]) Body mass index (BMI) [Ratio] 23.04 kg/m2 23.04 kg/m2 eCW1 ([facility]) Diastolic blood pressure 70 mm[Hg] 70 mm[Hg] eCW1 ([facility]) Systolic blood pressure 108 mm[Hg] 108 mm[Hg] e CW1 ([facility]) Body weight 117.4 [lb_av] 117.4 [lb_av] eCW1 ([facility]) Body height 60 [in_i] 60 [in_i] eCW1 ([facility]) Body mass index (BMI) [Ratio] 22.93 kg/m2 22.93 kg/m2 eCW1 ([facility]) Heart rate 74 /min 74 /min eCW1 ([facility]) Respiratory rate 16 /min 16 /min eCW1 ([facility]) Body temperature 98.7 [degF] 98.7 [degF] eCW1 ( [facility]) Systolic blood pressure 118 mm[Hg] 118 mm[Hg] e CW1 ([facility]) Diastolic blood pressure 72 mm[Hg] 72 mm[Hg] eCW1 ([facility]) Diastolic blood pressure 76 mm[Hg] 76 mm[Hg] CHETAN ([facility]) Body height 60 [in_i] 60 [in_i] CHETAN ([facility]) Systolic blood pressure 114 mm[Hg] 114 mm[Hg] A THENA ([facility]) Systolic blood pressure 114 mm[Hg] 114 mm[Hg] A THENA ([facility]) Diastolic blood pressure 76 mm[Hg] 76 mm[Hg] CHETAN ([facility]) Body height 60 [in_i] 60 [in_i] CHETAN ([facility]) Diastolic blood pressure 76 mm[Hg] 76 mm[Hg] CHETAN ([facility]) Body height 60 [in_i] 60 [in_i] CHETAN ([facility]) Systolic blood pressure 114 mm[Hg] 114 mm[Hg] A THENA ([facility]) Body weight 117.2 [lb_av] 117.2 [lb_av] eCW1 ([facility]) Body weight 53.16 kg 53.16 kg eCW1 ([facility]) Diastolic blood pressure 68 mm[Hg] 68 mm[Hg] eCW1 ([facility]) Respiratory rate 18 /min 18 /min eCW1 ([facility]) Body temperature 99.3 [degF] 99.3 [degF] eCW1 ( [facility]) Systolic blood pressure 108 mm[Hg] 108 mm[Hg] e CW1 ([facility]) Body height 60 [in_i] 60 [in_i] eCW1 ([facility]) Body mass index (BMI) [Ratio] 22.89 kg/m2 22.89 kg/m2 eCW1 ([facility]) Heart rate 73 /min 73 /min eCW1 ([facility]) Diastolic blood pressure 71 mm[Hg] 71 mm[Hg] CHETAN ([facility]) Body height 60 [in_i] 60 [in_i] CHETAN ([facility]) Body mass index (BMI) [Ratio] 22.9 kg/m2 22.9 k g/m2 CHETAN ([facility]) Systolic blood pressure 109 mm[Hg] 109 mm[Hg] A THENA ([facility]) Body weight 117.5 [lb_av] 117.5 [lb_av] CHETAN ([facility]) Diastolic blood pressure 71 mm[Hg] 71 mm[Hg] CHETAN ([facility]) Body height 60 [in_i] 60 [in_i] CHETAN ([facility]) Body mass index (BMI) [Ratio] 22.9 kg/m2 22.9 k g/m2 CHETAN ([facility]) Systolic blood pressure 109 mm[Hg] 109 mm[Hg] A THENA ([facility]) Body weight 117.5 [lb_av] 117.5 [lb_av] CHETAN ([facility]) Diastolic blood pressure 71 mm[Hg] 71 mm[Hg] CHETAN ([facility]) Systolic blood pressure 109 mm[Hg] 109 mm[Hg] A THENA ([facility]) Body weight 117.5 [lb_av] 117.5 [lb_av] CHETAN ([facility]) Body height 60 [in_i] 60 [in_i] CHETAN ([facility]) Body mass index (BMI) [Ratio] 22.9 kg/m2 22.9 k g/m2 CHETAN ([facility]) Diastolic blood pressure 71 mm[Hg] 71 mm[Hg] CHETAN ([facility]) Body height 60 [in_i] 60 [in_i] CHETAN ([facility]) Body mass index (BMI) [Ratio] 22.9 kg/m2 22.9 k g/m2 CHETAN ([facility]) Systolic blood pressure 109 mm[Hg] 109 mm[Hg] A THENA ([facility]) Body weight 117.5 [lb_av] 117.5 [lb_av] CHETAN ([facility]) Patient Treatment Plan of Care Planned Activity Planned Date Details Description Data Source (s) Acetaminophen 325 MG / Oxycodone Hydrochloride 5 MG Or al Tablet [Percocet] 10/01/2021 12:00:00 AM EST eCW1 (Critical access hospital) Acetaminophen 325 MG / Oxycodone Hydrochloride 5 MG Or al Tablet [Percocet] 10/01/2021 12:00:00 AM EST eCW1 (Critical access hospital)
[2021-10-28] MEDS ORDERED: BUPIVACAINE HCL 0.25% 30ML VIAL As Ordered ONE (07:15)
[2021-10-28] MEDS ORDERED: METHYLENE BLUE 0.5% (5MG/ML) 10 ML AMP (PROVAYBLUE) As Ordered ONE (07:15)
[2021-10-28 07:19] LABS: HEMATOCRIT 34.8 % (36.0-47.0); HEMOGLOBIN 12.2 g/dl (12.0-15.5); MEAN CORPUSCULAR HEMOGLOBIN 32.9 pg (27.0-33.0); MEAN CORPUSCULAR HGB CONC 35.1 g/dl (32.0-36.5); MEAN CORPUSCULAR VOLUME 93.8 fl (80.0-96.0); PLATELET COUNT, AUTOMATED 230 10^3/uL (150-450); RED BLOOD COUNT 3.71 10^6/uL (4.00-5.40); WHITE BLOOD COUNT 5.8 10^3/uL (4.0-10.0)
[2021-10-28] MEDS ORDERED: fentaNYL 250 MCG/5 ML INJECTION (J3010) As Ordered ONE (07:21)
[2021-10-28] MEDS ORDERED: ROCURONIUM BROMIDE 50 MG/5 ML VIAL As Ordered ONE ×2 (07:21→08:22)
[2021-10-28] MEDS ORDERED: dexameTHASONE 4 MG/ML 1ML VIAL (J1100 PER 1MG) As Ordered ONE (07:21)
[2021-10-28] MEDS ORDERED: propofoL 200 MG/20 ML VIAL As Ordered ONE (07:21)
[2021-10-28] MEDS ORDERED: ONDANSETRON 4MG/2ML VIAL As Ordered ONE ×2 (07:21→10:24)
[2021-10-28] MEDS ORDERED: LIDOCAINE 2% 100MG/5ML SDV (FOR ANES.) As Ordered ONE (07:21)
[2021-10-28] MEDS ORDERED: MIDAZOLAM INJ 2MG/2ML VIAL (J2250 PER 1MG) As Ordered ONE (07:22)
[2021-10-28] MEDS ORDERED: LACRILUBE (AKWA TEARS) OPHTH OINT 3.5 GM As Ordered ONE (07:48)
[2021-10-28] MEDS ORDERED: ePHEDrine SULFATE 25 MG/5 ML(5MG/ML) SYRINGE As Ordered ONE (07:50)
[2021-10-28] MEDS ORDERED: GLYCOPYRROLATE INJ 0.2 MG/ML 2 ML VIAL As Ordered ONE (07:53)
[2021-10-28] MEDS ORDERED: ACETAMINOPHEN 1000MG 100ML IV BTL (OFIRMEV) (J0131 PER 10MG) As Ordered ONE (08:54)
[2021-10-28] MEDS ORDERED: KETOROLAC 60MG 2ML VIAL As Ordered ONE (09:09)
[2021-10-28] MEDS ORDERED: HYDROmorphone HCL 2 MG/ML 1ML VIAL As Ordered ONE (09:09)
[2021-10-28] MEDS ORDERED: SUGAMMADEX SODIUM 500 MG/5 ML VIAL (BRIDION) As Ordered ONE (09:09)
[2021-10-28] MEDS ORDERED: HYDROMORPHONE HCL 0.5 MG/ 0.5 ML SYRINGE (J1170 PER 1) IV PRN (10:25)
[2021-10-28] MEDS ORDERED: fentaNYL 100 MCG/2 ML INJECTION (J3010) IV PRN (10:25)
[2021-10-28] MEDS ORDERED: LR 1,000 ML IV SCH (10:25)
[2021-10-28] MEDS ORDERED: ONDANSETRON 4MG/2ML VIAL IV PRN (10:25)
[2021-10-28] MEDS ORDERED: oxyCODONE 5MG TAB PO PRN (10:25)
[2021-10-28] MEDS ORDERED: PERCOCET 5MG/325MG TAB PO PRN (10:30)
--- NOTE | 2021-10-28 10:46 | ROOPDOC ---
[facility] Report Of Operation Report of Operation DATE OF PROCEDURE: 10/28/21 PREPROCEDURE DIAGNOSES: 1. Abnormal uterine bleeding. Fibroid uterus. POSTPROCEDURE DIAGNOSES: 1. Abnormal uterine bleeding. Fibroid uterus. PROCEDURES PERFORMED: 1. Robotic-assisted supracervical laparoscopic hysterectomy. 2. Bilateral salpingectomy. 3. Cystoscopy. SURGEON: Mik Avalos MD NEWS VIDEO EDITOR: RADHA Case ANESTHESIA: General endotracheal anesthesia. ESTIMATED BLOOD LOSS: 100 mL. INTRAVENOUS FLUIDS: 1000 mL lactated Ringer solution. URINE OUTPUT: 100 mL. PREPROCEDURE ANTIBIOTICS: 2g Ancef OPERATIVE FINDINGS: The patient with normal-appearing bilateral adnexa and fibroid uterus CYSTOSCOPIC FINDING: Normal bladder mucosa, no foreign objects. Bilateral ureteral jets were observed. SPECIMEN: Uterus and bilateral fallopian tubes DESCRIPTION OF PROCEDURE: After informed consent was obtained and written consent was reviewed, the patient was brought to the operating room, where general endotracheal anesthesia was obtained. She was then placed in lithotomy position, was prepped and draped in a normal sterile fashion. A time-out in the operating room was then performed, identifying the patient, procedure to be performed, as well as drug allergies. A speculum was then placed, revealing the cervix. The anterior and posterior aspects of the cervix were stitched with a 0 Vicryl. The uterus was then sounded to 11 cm. A large TouchTenare uterine manipulator was then advanced through the cervical os for means to manipulate the uterus. The cervical cap was applied over the cervix, as well as the vaginal sleeve applied into the vagina. The speculum was removed from the patients vagina. A Brice catheter was then placed and set to gravity. Gloves were changed, and attention was turned to the patients abdomen, where a Veress needle was placed through the umbilicus. A pneumoperitoneum was then obtained with CO2 gas. The supraumbilical area was infused with 0.25% Marcaine. An incision was made in this area, and a 8 mm trocar and sleeve was advanced through this incision. The laparoscope was then replaced, revealing intra-abdominal placement. Three additional port sites were placed, two to the left side of the patient's abdomen and one to the right. These areas was infused with 0.25% Marcaine. Each one of these areas, incisions were made, and 8 mm trocars and sleeves advanced through each one of these incisions under direct visualization. Next, the da Markus was then docked, utilizing a camera arm and two operative arms. The patient's abdomen was then surveyed with the above-noted finding. Bilateral salpingectomies were then performed. The fallopian tubes' mesosalpinx was cauterized and ligated with hemostasis noted. Next, the uteroovarian ligaments bilateral were cauterized and ligated with good hemostasis noted. The round ligaments bilaterally were cauterized and ligated with good hemostasis noted. The anterior and posterior aspects of broad ligaments were . The anterior leaf of the broad ligament was cauterized and ligated and dissected along the bladder, creating a bladder flap. The remainder of the broad and cardinal ligaments were then cauterized and ligated with good hemostasis noted. The ascending branches of uterine arteries were skeletonized bilaterally and were cauterized and transected with good hemostasis noted. The uterus was then amputated above the cervix using monopolar scissors. The surgical sites were inspected and noted to be hemostatic. The the cervical stump was reapproximated using 2-0 V-Loc system in a running fashion. Attention was then turned towards abdominal removal of the uterus. The da Markus was undocked. The laparoscope was advanced identifying the uterus. The uterus was brought up through the supraumbilical port. The fascia and skin of this in port site was extended. The uterus is then brought up bivalved and was removed. The fascia of this port site was then closed. The pneumoperitoneum was then released. all four port sites were closed with 4-0 Monocryl and dressed with Dermabond. Next, the cystoscopy was then performed. Utilizing a 70-degree cystoscope, it was advanced transurethrally through the bladder. The bladder was surveyed, showing normal bladder mucosa, no foreign bodies. The bilateral ureteral jets were observed. The cystoscope was then removed. The bladder was then drained. Gloves were changed. The patient was then taken out of lithotomy position and was awakened from general anesthesia and taken to recovery in stable condition. Counts were correct. Meena Paz, my surgical instrument technician, played a central role in the operation. She assisted with port placement, tissue retraction and identification, as well as wound closure. MIK AVALOS MD. Oct 28, 2021 10:46
[2021-10-28] MEDS: KETOROLAC 30 MG/ML 1ML VIAL IV SCH ×2 (16:29→21:09)
[2021-10-29] VITALS: BP 106/63
[2021-10-29] MEDS: KETOROLAC 30 MG/ML 1ML VIAL IV SCH ×2 (03:46→09:28)
[2021-10-29 04:00] VITALS: BP 109/71
== END 2021-10-29 10:07 | disposition home or self-care (01) ==
LOC: M SDC 06:23 → M PED 14:25 → M SDC 10-29 10:07
PROVIDERS: ATTEND Obstetrics & Gynecology
DX: N85.8 Other specified noninflammatory disorders of uterus (principal); D25.9 Leiomyoma of uterus, unspecified; M79.7 Fibromyalgia; F41.9 Anxiety disorder, unspecified; G43.909 Migraine, unspecified, not intractable, without status migrainosus; Z79.899 Other long term (current) drug therapy
CPT/HCPCS: 36415; 58542; 81025; 85027; 86850; 86900; 86901; 88307; 96374; 96376; J0131; J0690; J1100; J1170; J1885; J2250; J2405; J3010; Q9968; S2900